=== PATIENT | female | born 1965 | race Caucasian/White ===

== ENCOUNTER 2020-05-04 19:58 | Emergency (ER) | payer BC ==
[2020-05-04] MEDS ORDERED: IBUPROFEN 600 MG TABLET PO ONE (22:45)
--- NOTE | 2020-05-04 22:48 | ER Document Report ---
ED Medical Screen (RME) - General Chief Complaint: Shoulder Pain Stated Complaint: FALL-RIGHT SHOULDER AND WRIST PAIN Time Seen by Provider: 05/04/20 22:41 Mode of Arrival: Ambulatory Information source: Patient Notes: HPI; 54-year-old female presents to the emergency room complaining of right shoulder, right wrist, and right thumb pain. Patient states she was attempting to cross the garage when the string broke causing her to fall backward and landing on her right side. Denies hitting her head. Denies any loss of consciousness. Patient is right-handed. Patient drove herself to the emergency room. PE: Alert and oriented x3. Moderate distress noted. Limited range of motion noted to right shoulder and right wrist secondary to pain. Positive right radial pulse. Unable to do full assessment in triage. I have greeted and performed a rapid initial assessment of this patient. A comprehensive ED assessment and evaluation of the patient, analysis of test results and completion of the medical decision making process will be conducted by additional ED providers. I have specifically instructed the patient or family members with the patient to immediately return to any nursing staff should anything change in the patient's condition or with their chief complaint. TRAVEL OUTSIDE OF THE [place] IN LAST 30 DAYS: No Physical Exam - Vital signs Vitals: Temp Pulse Resp BP Pulse Ox 98.5 F 78 17 160/99 H 100 05/04/20 19:59 05/04/20 19:59 05/04/20 19:59 05/04/20 19:59 05/04/20 19:59 Course - Vital Signs Vital signs: Temp Pulse Resp BP Pulse Ox 98.5 F 78 17 160/99 H 100 05/04/20 19:59 05/04/20 19:59 05/04/20 19:59 05/04/20 19:59 05/04/20 19:59
--- NOTE | 2020-05-04 23:21 | RADIOLOGY REPORT (SQ) ---
EXAM DESCRIPTION: XR SHOULDER 2 OR MORE VIEWS COMPLETED DATE/TME: 05/04/2020 22:47 CLINICAL HISTORY: 54 years, Female, injury COMPARISON: None. NUMBER OF VIEWS: 3 TECHNIQUE: 3 views right shoulder LIMITATIONS: None. FINDINGS: Negative for fracture or dislocation. Minor degenerative changes of the acromioclavicular and glenohumeral joints. Soft tissues are unremarkable IMPRESSION: No acute osseous abnormality copyright 2010 [employer]- All Rights Reserved
--- NOTE | 2020-05-04 23:29 | RADIOLOGY REPORT (SQ) ---
EXAM DESCRIPTION: XR HAND 3 OR MORE VIEWS COMPLETED DATE/TME: 05/04/2020 22:47 CLINICAL HISTORY: 54 years, Female, injury COMPARISON: None. NUMBER OF VIEWS: TECHNIQUE: LIMITATIONS: None. FINDINGS: 3 views of the right hand were obtained. No fracture or dislocation. Mineralization of bone appears normal. IMPRESSION: No fracture or dislocation. copyright 2010 [employer]- All Rights Reserved
--- NOTE | 2020-05-04 23:31 | RADIOLOGY REPORT (SQ) ---
EXAM DESCRIPTION: XR WRIST 3 OR MORE VIEWS COMPLETED DATE/TME: 05/04/2020 22:47 CLINICAL HISTORY: 54 years, Female, injury COMPARISON: None. NUMBER OF VIEWS: TECHNIQUE: LIMITATIONS: None. FINDINGS: 3 views of the right wrist were obtained. No fracture or dislocation. Mineralization of bone appears normal. IMPRESSION: No fracture or dislocation. copyright 2010 [employer]- All Rights Reserved
[2020-05-05] MEDS ORDERED: HYDROCODONE/ACETAMINOPHEN 5-325 MG (6 TAB/ER DISP) PO PRN (04:46)
--- NOTE | 2020-05-05 04:51 | ER Document Report ---
ED Extremity Problem, Upper - General Chief Complaint: Arm Injury Stated Complaint: FALL-RIGHT SHOULDER AND WRIST PAIN Time Seen by Provider: 05/04/20 22:41 Mode of Arrival: Ambulatory Notes: Patient is a 54-year-old female who comes emergency department for chief complaint of injury to her right hand, right wrist, right shoulder. She states she was attempting to close her garage door when the string broke and this caused her to fall forward and landed on her right arm/hand/wrist. She denies hitting her head, hitting her hip, or any other injuries. She is not on a blood thinner. She is right-handed. TRAVEL OUTSIDE OF THE [place] IN LAST 30 DAYS: No - Related Data Home Medications: omeprazole, bupropin, lo lestrin Past Medical History - General Information source: Patient - Social History Smoking Status: Never Smoker Frequency of alcohol use: None Drug Abuse: None Lives with: Family Family History: Reviewed & Not Pertinent Patient has homicidal ideation: No GI Medical History: Reports: Hx Gastroesophageal Reflux Disease Psychiatric Medical History: Reports: Hx Depression Review of Systems - Review of Systems Constitutional: No symptoms reported EENT: No symptoms reported Cardiovascular: No symptoms reported Respiratory: No symptoms reported Gastrointestinal: No symptoms reported Genitourinary: No symptoms reported Female Genitourinary: No symptoms reported Musculoskeletal: See HPI Skin: No symptoms reported Hematologic/Lymphatic: No symptoms reported Neurological/Psychological: No symptoms reported Physical Exam - Vital signs Vitals: Temp Pulse Resp BP Pulse Ox 98.5 F 78 17 160/99 H 100 05/04/20 19:59 05/04/20 19:59 05/04/20 19:59 05/04/20 19:59 05/04/20 19:59 - Notes Notes: GENERAL: Alert, interacts well. Patient appears slightly uncomfortable and is holding her right arm close to her body. HEAD: Normocephalic, atraumatic. EYES: Pupils equal, round, and reactive to light. Extraocular movements intact. ENT: Oral mucosa moist, tongue midline. Oropharynx unremarkable. Airway patent. NECK: Full range of motion. Supple. Trachea midline. No lymphadenopathy. LUNGS: Clear to auscultation bilaterally, no wheezes, rales, or rhonchi. No respiratory distress. Non-tender chest wall. No signs of trauma. HEART: Regular rate and rhythm. No murmur ABDOMEN: Soft, non-tender. Non-distended. No signs of trauma. EXTREMITIES: Patient is tender over the right before meals and proximal humeral area with difficulty performing full range of motion of the arm over the head. No signs of trauma or severe pain to this area, no soft tissue swelling. Normal elbow exam. Right wrist shows some soft tissue swelling that extends up to the base of the palm and over the thumb slightly. No severe swelling, normal capillary refill and sensation, range of motion of the fingers intact, no evidence of compartment syndrome. Patient does have positive significant snuffbox tenderness. BACK: no cervical, thoracic, lumbar midline tenderness. No saddle anesthesia, normal distal neurovascular exam. Moves all extremities in full range of motion. NEUROLOGICAL: Alert and oriented x3. Normal speech. Cranial nerves II through XII grossly intact. Strength 5/5 in all extremities. PSYCH: Normal affect, normal mood. SKIN: Warm, dry, normal turgor. No rashes or lesions noted. Course - Re-evaluation Re-evalutation: X-rays of the shoulder, wrist, hand reviewed and unremarkable. However patient has soft tissue swelling of the wrist and base of the hand along with positive snuffbox tenderness concerning for scaphoid fracture. She also has evidence of rotator cuff injury with limited range of motion of the shoulder. No evidence of compartment syndrome on exam, no other concerning findings, no other injured areas. Discussed details with patient at length, provided her with symptom management, placed in sling and thumb spica, discussed importance of orthopedic follow-up. Patient states appreciation and agreement. Stable and well-appe aring at time of discharge. - Vital Signs Vital signs: Temp Pulse Resp BP Pulse Ox 98.7 F 78 16 145/79 H 100 05/05/20 06:10 05/05/20 06:10 05/05/20 06:10 05/05/20 06:10 05/05/20 06:10 Procedures - Immobilization Right wrist Pre-Proc Neuro Vasc Exam: Normal Immobilizer type: Thumb spica, Sling Performed by: PCT Post-Proc Neuro Vasc Exam: Normal Alignment checked and good: Yes Discharge - Discharge Clinical Impression: Right shoulder injury Qualifiers: Encounter type: initial encounter Qualified Code(s): S49.91XA - Unspecified injury of right shoulder and upper arm, initial encounter Right wrist injury Qualifiers: Encounter type: initial encounter Qualified Code(s): S69.91XA - Unspecified injury of right wrist, hand and finger(s), initial encounter Condition: Stable Disposition: HOME, SELF-CARE Additional Instructions: Your x-rays do not show any concerning findings but your evaluation is concerning for a possible scaphoid fracture based on your exam. Please wear the thumb spica splint, use the sling especially to help with your rotator cuff injury, take the pain medication if needed. Remember to take your shoulder out of the sling and perform range of motion as we discussed. Call orthopedics on Thursday and perform close follow-up for additional management. Return if you worsen including severe worsening pain or swelling, or any other concerning or worsening symptoms. Prescriptions: Oxycodone HCl/Acetaminophen [Percocet 5-325 mg Tablet] 1 tab PO TID PRN #12 tab PRN Reason:
[2020-05-05 06:13] VITALS: BP 145/79
== END 2020-05-05 06:10 | disposition home or self-care (01) ==
LOC: ER 19:58
DX: S69.91XA Unspecified injury of right wrist, hand and finger(s), initial encounter (principal); S49.91XA Unspecified injury of right shoulder and upper arm, initial encounter; W18.39XA Other fall on same level, initial encounter; Y93.89 Activity, other specified; K21.9 Gastro-esophageal reflux disease without esophagitis; Z79.899 Other long term (current) drug therapy
CPT/HCPCS: 99283